=== PATIENT | female | born 1980 | race Caucasian/White ===

== ENCOUNTER → 2016-12-19 | Outpatient (CLI) | payer OTHER ==
--- NOTE | 2016-12-19 10:23 | DIAGNOSTIC IMAGING REPORT ---
PROCEDURE: US ABDOMEN ULTRASOUND-COMPLETE INDICATION: ABNORMAL LFT'S TECHNIQUE: Vega scale and color Doppler sonographic images of the abdomen were obtained without comparison. COMPARISON: None. FINDINGS: The liver is enlarged and demonstrates increased echogenicity. No mass or intrahepatic biliary dilatation. The gallbladder is surgically absent. No pericholecystic fluid or Leslie sign. The extrahepatic common duct is normal measuring 5.8 mm The visualized pancreas is normal without ductal dilatation or peripancreatic fluid collection. The abdominal aorta is normal in its course and caliber. The retrohepatic inferior vena cava is patent. There is appropriate hepatopetal flow in the portal vein. The right kidney measures 12 cm in length. The left kidney measures 11.5 cm in length. Both kidneys demonstrate normal morphology and cortical thickness without hydronephrosis, cyst, solid mass, or shadowing calculus. Color Doppler imaging demonstrates normal blood flow in each kidney. The spleen is normal in size measuring 12 cm in length. There is no perihepatic or perisplenic ascites. IMPRESSION: 1. Fatty liver
== END ==
LOC: US SRH 08:49
DX: K76.0 Fatty (change of) liver, not elsewhere classified (principal)

== ENCOUNTER 2017-03-25 22:36 | Emergency (ER) | payer OTHER ==
--- NOTE | 2017-03-25 23:18 | ED CLINICAL REPORT ---
Clinical Report - Physicians/Mid Levels [facility] [address] [place] [address] 03/25/2017 22:38 Patient: JANINE PAYTON Time Seen: 12:55 Mar 27 2017. Arrived- By private vehicle. Historian- patient. CPT: ER phys charges level 3 (#[id number]). HISTORY OF PRESENT ILLNESS Chief Complaint: EARACHE. This started today and is still present. Onset during light activity. Modifying factors. Not worsened by anything. Not relieved by anything. Location- left ear. The pain is described as moderate. The patient has had ear pain and hearing loss. No ear drainage. She has had nasal congestion and a nasal discharge. Similar symptoms previously: Recent medical care: Not recently seen/assessed. REVIEW OF SYSTEMS No fever, chills, cough, nausea or vomiting. No diarrhea, abdominal pain, skin rash or enlarged lymph nodes. All systems otherwise negative, except as recorded above. PAST HISTORY ear infection. Medications: Additional diabetic medication. Glimepiride Oral (Tablet 4 mg) 2 tablets, daily. MetFORMIN HCl Oral 2000mg, daily. Allergies: No Known Drug Allergy. ADDITIONAL NOTES The nursing notes have been reviewed. PHYSICAL EXAM Vital Signs: 03/25/2017 22:49 BP: 103/67. HR: 91. RR: 15. O2 saturation: 97%. Temp: 99.1 F. Pain level now: 5/10. Appearance: Alert. Patient in mild distress. Eyes: Eyes normal inspection. Throat: Pharynx normal. Nose: Nose normal. Ear (left): There is erythema and dullness of the tympanic membrane and fluid behind the tympanic membrane. Left ear normal. Ear (right): Right ear normal. Right tympanic membrane normal. CVS: Normal heart rate and rhythm. Heart sounds normal. Respiratory: No respiratory distress. Breath sounds normal. Skin: No rash. Neuro: Oriented X 3. PROGRESS AND PROCEDURES Patient/family counseled. Disposition: Discharged. Condition: stable. CLINICAL IMPRESSION Acute and recurrent suppurative left otitis media. No perforation of left tympanic membrane. INSTRUCTIONS Drink plenty of fluids. Warnings: Further evaluation is necessary. GENERAL WARNINGS: Return or contact your physician immediately if your condition worsens or changes unexpectedly, if not improving as expected, or if other problems arise. Prescription Medications: Hydrocodone/APAP 5mg / 325mg: take 1-2 orally every 6 hours as needed for pain. Dispense ten (10). No refill. Augmentin 875 mg: take 1 tablet orally every 12 hours for 7 days. Dispense fourteen (14). No refills. Substitution is permissible. Follow-up: Follow up with your doctor in one week. Call for an appointment. Understanding of the discharge instructions verbalized by patient. (Electronically signed by John Martínez MD 03/27/2017 12:58)
--- NOTE | 2017-03-25 23:18 | ED NURSING NOTES ---
Clinical Report - Nurses Located Within [facility] [address] [place] [address] 03/25/2017 22:38 Patient: JANINE PAYTON TRIAGE Triage time 22:45. Acuity: LEVEL 5. Chief Complaint: LEFT EAR PAIN, SINUS CONGESTION and (sore throat). Alert. No acute distress. --22:48 Chikis Montes De Oca R.N. 22:49 03/25/17. BP: 103/67. HR: 91. RR: 15 (regular and unlabored). O2 saturation: 97% on room air. Temp: 99.1 F (oral). Pain level now: 03/19. --22:51 Chikis Montes De Oca R.N. Weight: 88.4 kg stated. Height/Length: 64 inches Per Patient. BMI: 33.5. --22:47 Chikis Montes De Oca R.N. Medications MetFORMIN HCl Oral 2000mg, daily. --22:46 Chikis Montes De Oca R.N. Glimepiride Oral (Tablet 4 mg) 2 tablets, daily. --22:47 Chikis Montes De Oca R.N. Additional diabetic medication. --22:47 Chikis Montes De Oca R.N. Allergies No Known Drug Allergy. --22:47 Chikis Montes De Oca R.N. History Arrived by private vehicle. Primary physician (Chichi). 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 SOCIAL HX: Never smoker. No alcohol use or drug use. NUTRITIONAL RISK ASSESSMENT: The nutritional risk assessment revealed no deficiencies. FUNCTIONAL ASSESSMENT: Functional assessment: no impairments noted. --22:48 Chikis Montes De Oca R.N. PROBLEMS: Chronic ear infection. Diabetes Mellitus. --22:47 Chikis Montes De Oca R.N. ADDITIONAL SURGERIES: Cholecystectomy. --22:47 Chikis Montes De Oca R.N. Interventions ID band on patient. To treatment room. --22:48 Chikis Montes De Oca R.N. PHYSICAL ASSESSMENT Ambulatory to room. GENERAL / NEURO / PSYCH: Alert. Appears in no acute distress. CVS: Capillary refill less than 2 seconds. SKIN: Skin is warm and dry. --:49 Chikis Montes De Oca R.N. NURSING PROGRESS NOTES Head of bed elevated. Two patient identifiers checked. Call light placed in reach. Side rails up x 1. Bed placed in lowest position. Brakes of bed on. --:49 Chikis Montes De Oca R.N. Patient ready for evaluation- chart flagged. --22:49 Chikis Montes De Oca R.N. DISPOSITION / DISCHARGE Condition at departure: unchanged and stable. No learning barriers present. Discharge instructions provided and reviewed with the patient. Reviewed medication(s) side effects, precautions, dosing and course information. Prescription(s) given to the patient. Patient verbalized understanding. Written instructions provided in Lao. The patient was discharged home. She left the Emergency Department ambulatory and via private vehicle. Patient driving. --23:29 Chikis Montes De Oca R.N. 23:25 03/25/17. BP: deferred. HR: deferred. RR: 15 (regular and unlabored). O2 saturation: deferred. Temp: deferred. Murillo-Hyatt pain scale: 2/10. --23:29 Chikis Montes De Oca R.N. Locked/Released at 03/25/2017 23:29 by Chikis Montes De Oca R.N.
--- NOTE | 2017-03-25 23:18 | ED NURSING NOTES ---
Clinical Report - Nurses [facility] [address] [place] [address] 03/25/2017 22:38 Patient: JANINE PAYTON TRIAGE Triage time 22:45. Acuity: LEVEL 5. Chief Complaint: LEFT EAR PAIN, SINUS CONGESTION and (sore throat). Alert. No acute distress. --22:48 Chikis Montes De Oca R.N. 22:49 03/25/17. BP: 103/67. HR: 91. RR: 15 (regular and unlabored). O2 saturation: 97% on room air. Temp: 99.1 F (oral). Pain level now: 03/19. --22:51 Chikis Montes De Oca R.N. Weight: 88.4 kg stated. Height/Length: 64 inches Per Patient. BMI: 33.5. --22:47 Chikis Montes De Oca R.N. Medications MetFORMIN HCl Oral 2000mg, daily. --22:46 Chikis Montes De Oca R.N. Glimepiride Oral (Tablet 4 mg) 2 tablets, daily. --22:47 Chikis Montes De Oca R.N. Additional diabetic medication. --22:47 Chikis Montes De Oca R.N. Allergies No Known Drug Allergy. --22:47 Chikis Montes De Oca R.N. History Arrived by private vehicle. Primary physician (Chichi). 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 SOCIAL HX: Never smoker. No alcohol use or drug use. NUTRITIONAL RISK ASSESSMENT: The nutritional risk assessment revealed no deficiencies. FUNCTIONAL ASSESSMENT: Functional assessment: no impairments noted. --22:48 Chikis Montes De Oca R.N. PROBLEMS: Chronic ear infection. Diabetes Mellitus. --22:47 Chikis Montes De Oca R.N. ADDITIONAL SURGERIES: Cholecystectomy. --22:47 Chikis Montes De Oca R.N. Interventions ID band on patient. To treatment room. --22:48 Chikis Montes De Oca R.N. PHYSICAL ASSESSMENT Ambulatory to room. GENERAL / NEURO / PSYCH: Alert. Appears in no acute distress. CVS: Capillary refill less than 2 seconds. SKIN: Skin is warm and dry. --:49 Chikis Montes De Oca R.N. NURSING PROGRESS NOTES Head of bed elevated. Two patient identifiers checked. Call light placed in reach. Side rails up x 1. Bed placed in lowest position. Brakes of bed on. --:49 Chikis Montes De Oca R.N. Patient ready for evaluation- chart flagged. --22:49 Chikis Montes De Oca R.N. DISPOSITION / DISCHARGE Condition at departure: unchanged and stable. No learning barriers present. Discharge instructions provided and reviewed with the patient. Reviewed medication(s) side effects, precautions, dosing and course information. Prescription(s) given to the patient. Patient verbalized understanding. Written instructions provided in Kyrgyz. The patient was discharged home. She left the Emergency Department ambulatory and via private vehicle. Patient driving. --23:29 Chikis Montes De Oca R.N. 23:25 03/25/17. BP: deferred. HR: deferred. RR: 15 (regular and unlabored). O2 saturation: deferred. Temp: deferred. Murillo-Hyatt pain scale: 2/10. --23:29 Chikis Montes De Oca R.N. Locked/Released at 03/25/2017 23:29 by Chikis Montes De Oca R.N.
--- NOTE | 2017-03-25 23:18 | ED CLINICAL REPORT ---
Clinical Report - Physicians/Mid Levels [facility] [address] [place] [address] 03/25/2017 22:38 Patient: JANINE PAYTON Time Seen: 12:55 Mar 27 2017. Arrived- By private vehicle. Historian- patient. CPT: ER phys charges level 3 (#[id number]). HISTORY OF PRESENT ILLNESS Chief Complaint: EARACHE. This started today and is still present. Onset during light activity. Modifying factors. Not worsened by anything. Not relieved by anything. Location- left ear. The pain is described as moderate. The patient has had ear pain and hearing loss. No ear drainage. She has had nasal congestion and a nasal discharge. Similar symptoms previously: Recent medical care: Not recently seen/assessed. REVIEW OF SYSTEMS No fever, chills, cough, nausea or vomiting. No diarrhea, abdominal pain, skin rash or enlarged lymph nodes. All systems otherwise negative, except as recorded above. PAST HISTORY ear infection. Medications: Additional diabetic medication. Glimepiride Oral (Tablet 4 mg) 2 tablets, daily. MetFORMIN HCl Oral 2000mg, daily. Allergies: No Known Drug Allergy. ADDITIONAL NOTES The nursing notes have been reviewed. PHYSICAL EXAM Vital Signs: 03/25/2017 22:49 BP: 103/67. HR: 91. RR: 15. O2 saturation: 97%. Temp: 99.1 F. Pain level now: 5/10. Appearance: Alert. Patient in mild distress. Eyes: Eyes normal inspection. Throat: Pharynx normal. Nose: Nose normal. Ear (left): There is erythema and dullness of the tympanic membrane and fluid behind the tympanic membrane. Left ear normal. Ear (right): Right ear normal. Right tympanic membrane normal. CVS: Normal heart rate and rhythm. Heart sounds normal. Respiratory: No respiratory distress. Breath sounds normal. Skin: No rash. Neuro: Oriented X 3. PROGRESS AND PROCEDURES Patient/family counseled. Disposition: Discharged. Condition: stable. CLINICAL IMPRESSION Acute and recurrent suppurative left otitis media. No perforation of left tympanic membrane. INSTRUCTIONS Drink plenty of fluids. Warnings: Further evaluation is necessary. GENERAL WARNINGS: Return or contact your physician immediately if your condition worsens or changes unexpectedly, if not improving as expected, or if other problems arise. Prescription Medications: Hydrocodone/APAP 5mg / 325mg: take 1-2 orally every 6 hours as needed for pain. Dispense ten (10). No refill. Augmentin 875 mg: take 1 tablet orally every 12 hours for 7 days. Dispense fourteen (14). No refills. Substitution is permissible. Follow-up: Follow up with your doctor in one week. Call for an appointment. Understanding of the discharge instructions verbalized by patient. (Electronically signed by John Martínez MD 03/27/2017 12:58)
--- NOTE | 2017-03-27 12:59 | ED MAR SUMMARY ---
..... Medication Administration Record [facility] [address], [place] [id number] Patient: JANINE PAYTON Visit ID: [id number] 36y, F Weight: 88.4 kg Height/Length: 64 in BMI: 33.5 ALLERGIES: No Known Drug Allergy
--- NOTE | 2017-03-27 12:59 | ED DISCHARGE INSTRUCTIONS ---
Patient: JANINE PAYTON General Instructions [facility] VisitID: [id number] [place] [address] 36y, F Registration Date/Time: 03/25/2017 Acute and recurrent suppurative left otitis media. No perforation of left tympanic membrane. INSTRUCTIONS Drink plenty of fluids. Warnings: Further evaluation is necessary. GENERAL WARNINGS: Return or contact your physician immediately if your condition worsens or changes unexpectedly, if not improving as expected, or if other problems arise. Prescription Medications: Hydrocodone/APAP 5mg / 325mg: take 1-2 orally every 6 hours as needed for pain. Dispense ten (10). No refill. Augmentin 875 mg: take 1 tablet orally every 12 hours for 7 days. Dispense fourteen (14). No refills. Substitution is permissible. Follow-up: Follow up with your doctor in one week. Call for an appointment. Understanding of the discharge instructions verbalized by patient. ADDITIONAL INFORMATION Middle Ear Infection (Adult) You have an infection of the middle ear (the space behind the eardrum). It can occur as a result of the common cold. This is because congestion can block the internal passage (eustachian tube) that drains fluid from the middle ear. When the middle ear fills with fluid, bacteria can grow there and cause an infection. Oral antibiotics are used to treat this illness, not ear drops. Symptoms usually start to improve within 1-2 days of treatment. Home Care: Finish all of the antibiotic medicine prescribed, even though you may feel better after the first few days. You may use acetaminophen (Tylenol) or ibuprofen (Motrin, Advil) to control pain, unless something else was prescribed. [NOTE: If you have chronic liver or kidney disease or have ever had a stomach ulcer or GI bleeding, talk with your doctor before using these medicines.] (Do not give aspirin to anyone under 18 years of age who is ill with a fever. It may cause severe liver damage.) Follow Up with your doctor or this facility in two weeks if all symptoms have not cleared, or if hearing does not return to normal within one month. Get Prompt Medical Attention if any of the following occur: Ear pain gets worse or does not improve after three days of treatment Unusual drowsiness or confusion Neck pain, stiff neck or headache Fluid or blood draining from the ear canal Fever of 100.4F (38C) or higher after 3 days of antibiotics, or as directed by your healthcare provider Convulsion (seizure) Hydrocodone Bitartrate, Acetaminophen Oral tablet What is this medicine? ACETAMINOPHEN; HYDROCODONE (a set a ROBERT corey fen; cali droe KOE done) is a pain reliever. It is used to treat mild to moderate pain. How should I use this medicine? Take this medicine by mouth. Swallow it with a full glass of water. Follow the directions on the prescription label. If the medicine upsets your stomach, take the medicine with food or milk. Do not take more than you are told to take. Talk to your tube repairer regarding the use of this medicine in children. This medicine is not approved for use in children. What side effects may I notice from receiving this medicine? Side effects that you should report to your doctor or health day care center director as soon as possible: allergic reactions like skin rash, itching or hives, swelling of the face, lips, or tongue breathing problems confusion feeling faint or lightheaded, falls stomach pain yellowing of the eyes or skin Side effects that usually do not require medical attention (report to your doctor or health day care center director if they continue or are bothersome): nausea, vomiting stomach upset What may interact with this medicine? alcohol antihistamines isoniazid medicines for depression, anxiety, or psychotic disturbances medicines for sleep muscle relaxants naltrexone narcotic medicines (opiates) for pain phenobarbital ritonavir tramadol What if I miss a dose? If you miss a dose, take it as soon as you can. If it is almost time for your next dose, take only that dose. Do not take double or extra doses. Where should I keep my medicine? Keep out of the reach of children. This medicine can be abused. Keep your medicine in a safe place to protect it from theft. Do not share this medicine with anyone. Selling or giving away this medicine is dangerous and against the law. Store at room temperature between 15 and 30 degrees C (59 and 86 degrees F). Protect from light. Keep container tightly closed. Throw away any unused medicine after the expiration date. Discard unused medicine and used packaging carefully. Pets and children can be harmed if they find used or lost packages. What should I tell my health care provider before I take this medicine? They need to know if you have any of these conditions: brain tumor Crohn's disease, inflammatory bowel disease, or ulcerative colitis drink more than 3 alcohol-containing drinks per day drug abuse or addiction head injury heart or circulation problems kidney disease or problems going to the bathroom liver disease lung disease, asthma, or breathing problems an unusual or allergic reaction to acetaminophen, hydrocodone, other opioid analgesics, other medicines, foods, dyes, or preservatives or trying to get breast-feeding What should I watch for while using this medicine? Tell your doctor or health day care center director if your pain does not go away, if it gets worse, or if you have new or a different type of pain. You may develop tolerance to the medicine. Tolerance means that you will need a higher dose of the medicine for pain relief. Tolerance is normal and is expected if you take the medicine for a long time. Do not suddenly stop taking your medicine because you may develop a severe reaction. Your body becomes used to the medicine. This does NOT mean you are addicted. Addiction is a behavior related to getting and using a drug for a non-medical reason. If you have pain, you have a medical reason to take pain medicine. Your doctor will tell you how much medicine to take. If your doctor wants you to stop the medicine, the dose will be slowly lowered over time to avoid any side effects. You may get drowsy or dizzy when you first start taking the medicine or change doses. Do not drive, use machinery, or do anything that may be dangerous until you know how the medicine affects you. Stand or sit up slowly. There are different types of narcotic medicines (opiates) for pain. If you take more than one type at the same time, you may have more side effects. Give your health care provider a list of all medicines you use. Your doctor will tell you how much medicine to take. Do not take more medicine than directed. Call emergency for help if you have problems breathing. The medicine will cause constipation. Try to have a bowel movement at least every 2 to 3 days. If you do not have a bowel movement for 3 days, call your doctor or health day care center director. Too much acetaminophen can be very dangerous. Do not take Tylenol (acetaminophen) or medicines that contain acetaminophen with this medicine. Many non-prescription medicines contain acetaminophen. Always read the labels carefully. You have been given the following additional information: Otitis Media, Abx Tx (Adult) Hydrocodone Bitartrate, Acetaminophen Oral tablet (Electronically signed by John Martínez MD 03/27/2017 12:58)
--- NOTE | 2017-03-27 12:59 | ED DISCHARGE INSTRUCTIONS ---
Patient: JANINE PAYTON General Instructions [facility] VisitID: [id number] [place] [address] 36y, F Registration Date/Time: 03/25/2017 Acute and recurrent suppurative left otitis media. No perforation of left tympanic membrane. INSTRUCTIONS Drink plenty of fluids. Warnings: Further evaluation is necessary. GENERAL WARNINGS: Return or contact your physician immediately if your condition worsens or changes unexpectedly, if not improving as expected, or if other problems arise. Prescription Medications: Hydrocodone/APAP 5mg / 325mg: take 1-2 orally every 6 hours as needed for pain. Dispense ten (10). No refill. Augmentin 875 mg: take 1 tablet orally every 12 hours for 7 days. Dispense fourteen (14). No refills. Substitution is permissible. Follow-up: Follow up with your doctor in one week. Call for an appointment. Understanding of the discharge instructions verbalized by patient. ADDITIONAL INFORMATION Middle Ear Infection (Adult) You have an infection of the middle ear (the space behind the eardrum). It can occur as a result of the common cold. This is because congestion can block the internal passage (eustachian tube) that drains fluid from the middle ear. When the middle ear fills with fluid, bacteria can grow there and cause an infection. Oral antibiotics are used to treat this illness, not ear drops. Symptoms usually start to improve within 1-2 days of treatment. Home Care: Finish all of the antibiotic medicine prescribed, even though you may feel better after the first few days. You may use acetaminophen (Tylenol) or ibuprofen (Motrin, Advil) to control pain, unless something else was prescribed. [NOTE: If you have chronic liver or kidney disease or have ever had a stomach ulcer or GI bleeding, talk with your doctor before using these medicines.] (Do not give aspirin to anyone under 18 years of age who is ill with a fever. It may cause severe liver damage.) Follow Up with your doctor or this facility in two weeks if all symptoms have not cleared, or if hearing does not return to normal within one month. Get Prompt Medical Attention if any of the following occur: Ear pain gets worse or does not improve after three days of treatment Unusual drowsiness or confusion Neck pain, stiff neck or headache Fluid or blood draining from the ear canal Fever of 100.4F (38C) or higher after 3 days of antibiotics, or as directed by your healthcare provider Convulsion (seizure) Hydrocodone Bitartrate, Acetaminophen Oral tablet What is this medicine? ACETAMINOPHEN; HYDROCODONE (a set a ROBERT corey fen; cali droe KOE done) is a pain reliever. It is used to treat mild to moderate pain. How should I use this medicine? Take this medicine by mouth. Swallow it with a full glass of water. Follow the directions on the prescription label. If the medicine upsets your stomach, take the medicine with food or milk. Do not take more than you are told to take. Talk to your collar turner operator regarding the use of this medicine in children. This medicine is not approved for use in children. What side effects may I notice from receiving this medicine? Side effects that you should report to your doctor or health palliative care nurse as soon as possible: allergic reactions like skin rash, itching or hives, swelling of the face, lips, or tongue breathing problems confusion feeling faint or lightheaded, falls stomach pain yellowing of the eyes or skin Side effects that usually do not require medical attention (report to your doctor or health palliative care nurse if they continue or are bothersome): nausea, vomiting stomach upset What may interact with this medicine? alcohol antihistamines isoniazid medicines for depression, anxiety, or psychotic disturbances medicines for sleep muscle relaxants naltrexone narcotic medicines (opiates) for pain phenobarbital ritonavir tramadol What if I miss a dose? If you miss a dose, take it as soon as you can. If it is almost time for your next dose, take only that dose. Do not take double or extra doses. Where should I keep my medicine? Keep out of the reach of children. This medicine can be abused. Keep your medicine in a safe place to protect it from theft. Do not share this medicine with anyone. Selling or giving away this medicine is dangerous and against the law. Store at room temperature between 15 and 30 degrees C (59 and 86 degrees F). Protect from light. Keep container tightly closed. Throw away any unused medicine after the expiration date. Discard unused medicine and used packaging carefully. Pets and children can be harmed if they find used or lost packages. What should I tell my health care provider before I take this medicine? They need to know if you have any of these conditions: brain tumor Crohn's disease, inflammatory bowel disease, or ulcerative colitis drink more than 3 alcohol-containing drinks per day drug abuse or addiction head injury heart or circulation problems kidney disease or problems going to the bathroom liver disease lung disease, asthma, or breathing problems an unusual or allergic reaction to acetaminophen, hydrocodone, other opioid analgesics, other medicines, foods, dyes, or preservatives or trying to get breast-feeding What should I watch for while using this medicine? Tell your doctor or health palliative care nurse if your pain does not go away, if it gets worse, or if you have new or a different type of pain. You may develop tolerance to the medicine. Tolerance means that you will need a higher dose of the medicine for pain relief. Tolerance is normal and is expected if you take the medicine for a long time. Do not suddenly stop taking your medicine because you may develop a severe reaction. Your body becomes used to the medicine. This does NOT mean you are addicted. Addiction is a behavior related to getting and using a drug for a non-medical reason. If you have pain, you have a medical reason to take pain medicine. Your doctor will tell you how much medicine to take. If your doctor wants you to stop the medicine, the dose will be slowly lowered over time to avoid any side effects. You may get drowsy or dizzy when you first start taking the medicine or change doses. Do not drive, use machinery, or do anything that may be dangerous until you know how the medicine affects you. Stand or sit up slowly. There are different types of narcotic medicines (opiates) for pain. If you take more than one type at the same time, you may have more side effects. Give your health care provider a list of all medicines you use. Your doctor will tell you how much medicine to take. Do not take more medicine than directed. Call emergency for help if you have problems breathing. The medicine will cause constipation. Try to have a bowel movement at least every 2 to 3 days. If you do not have a bowel movement for 3 days, call your doctor or health palliative care nurse. Too much acetaminophen can be very dangerous. Do not take Tylenol (acetaminophen) or medicines that contain acetaminophen with this medicine. Many non-prescription medicines contain acetaminophen. Always read the labels carefully. You have been given the following additional information: Otitis Media, Abx Tx (Adult) Hydrocodone Bitartrate, Acetaminophen Oral tablet (Electronically signed by John Martínez MD 03/27/2017 12:58)
--- NOTE | 2017-03-27 12:59 | ED MED RECONCILIATION SUMMARY ---
Patient: JANINE PAYTON Medication Reconciliation Report [facility] VisitID: [id number] [address] [place] [address] 36y, F Registration Date/Time: 03/25/2017 Weight: 88.4 kg Height/Length: 64 in. BMI: 33.5 ALLERGIES: No Known Drug Allergy The patient's Home Medications are listed below: THE FOLLOWING MEDICATIONS NEED TO BE RECONCILED: Additional diabetic medication Glimepiride Oral (4 mg) 2 tablets, daily MetFORMIN HCl Oral 2000mg, daily The source(s) of the original Home Medication information: Not obtained. The following Medications were given to the patient in the Emergency Department: None. The following Medications were prescribed to the patient: Hydrocodone/APAP 5mg / 325mg: take 1-2 orally every 6 hours as needed for pain. Dispense ten (10). No refill. -- John Martínez MD Augmentin 875 mg: take 1 tablet orally every 12 hours for 7 days. Dispense fourteen (14). No refills. Substitution is permissible. -- John Martínez MD
--- NOTE | 2017-03-27 12:59 | ED MAR SUMMARY ---
..... Medication Administration Record [facility] [address] [place], [place] [id number] Patient: JANINE PAYTON Visit ID: [id number] 36y, F Weight: 88.4 kg Height/Length: 64 in BMI: 33.5 ALLERGIES: No Known Drug Allergy
--- NOTE | 2017-03-27 12:59 | ED MED RECONCILIATION SUMMARY ---
Patient: JANINE PAYTON Medication Reconciliation Report [facility] VisitID: [id number] [address] [place] [address] 36y, F Registration Date/Time: 03/25/2017 Weight: 88.4 kg Height/Length: 64 in. BMI: 33.5 ALLERGIES: No Known Drug Allergy The patient's Home Medications are listed below: THE FOLLOWING MEDICATIONS NEED TO BE RECONCILED: Additional diabetic medication Glimepiride Oral (4 mg) 2 tablets, daily MetFORMIN HCl Oral 2000mg, daily The source(s) of the original Home Medication information: Not obtained. The following Medications were given to the patient in the Emergency Department: None. The following Medications were prescribed to the patient: Hydrocodone/APAP 5mg / 325mg: take 1-2 orally every 6 hours as needed for pain. Dispense ten (10). No refill. -- John Martínez MD Augmentin 875 mg: take 1 tablet orally every 12 hours for 7 days. Dispense fourteen (14). No refills. Substitution is permissible. -- John Martínez MD
== END 2017-03-25 23:25 | disposition home or self-care (01) ==
LOC: ED SRH 22:36
DX: H66.005 Acute suppurative otitis media without spontaneous rupture of ear drum, recurrent, left ear (principal); Z79.84 Long term (current) use of oral hypoglycemic drugs; Z79.899 Other long term (current) drug therapy